=== PATIENT | female | born 1985 | race American Indian/Alaskan Native ===

== ENCOUNTER 2022-05-17 02:30 | Emergency (ER) | payer SELFPAY ==
[2022-05-17] MEDS ORDERED: SODIUM CHLORIDE 0.9% 1000 ML 1,000 ML IV ONE (02:46)
[2022-05-17 03:34] LABS: Basophils # (Auto) 0.1 K/mm3 (0.0-0.1); Eosinophils # (Auto) 0.3 K/mm3 (0.0-0.4); Hematocrit 34.3 % (30.3-42.9); Hemoglobin 11.6 gm/dl (10.1-14.3); Lymphocytes # (Auto) 2.8 K/mm3 (1.2-5.4); Lymphocytes % (Auto) 37.3 % (13.4-35.0); Mean Corpuscular HGB Conc 34 % (30-34); Mean Corpuscular Volume 91 fl (79-97); Monocytes # (Auto) 0.6 K/mm3 (0.0-0.8); Monocytes % (Auto) 8.2 % (0.0-7.3); Platelet Count 329 K/mm3 (140-440); Red Blood Count 3.78 M/mm3 (3.65-5.03); Red Cell Distribution Width 13.8 % (13.2-15.2)
[2022-05-17] MEDS ORDERED: ONDANSETRON 4 MG/2 ML INJ IV ONE (04:23)
--- NOTE | 2022-05-17 04:25 | Emergency Department Report ---
ED General Adult HPI - General Chief complaint: Alcohol Stated complaint: LIGHT HEADEDNESS Time Seen by Provider: 05/17/22 02:46 Source: patient, EMS Mode of arrival: Stretcher Limitations: No Limitations - History of Present Illness Initial comments: Patient is a 36-year-old female presenting to ED with complaint of lightheadedness and nausea beginning earlier yesterday evening. States she did drink alcohol however does not think this is the cause of her symptoms. She denies chest pain or palpitations. - Related Data Allergies Allergy/AdvReac Type Severity Reaction Status Date / Time No Known Allergies Allergy Unverified 05/17/22 02:38 ED Review of Systems ROS: Stated complaint: LIGHT HEADEDNESS Other details as noted in HPI Comment: All other systems reviewed and negative Constitutional: denies: chills, fever Respiratory: denies: cough, shortness of breath, wheezing Cardiovascular: denies: chest pain, palpitations Gastrointestinal: nausea. denies: abdominal pain, diarrhea Musculoskeletal: denies: back pain, joint swelling, arthralgia Skin: denies: rash, lesions Neurological: denies: headache, weakness, paresthesias Psychiatric: denies: anxiety, depression ED Physical Exam - General Limitations: No Limitations General appearance: alert, in no apparent distress, appears intoxicated (Mildly intoxicated), obese - Head Head exam: Present: atraumatic, normocephalic - Respiratory Respiratory exam: Present: normal lung sounds bilaterally. Absent: respiratory distress - Cardiovascular Cardiovascular Exam: Present: regular rate, normal rhythm, normal heart sounds - GI/Abdominal GI/Abdominal exam: Present: soft. Absent: distended, tenderness - Rectal Rectal exam: Present: deferred - Neurological Exam Neurological exam: Present: alert, oriented X3 - Psychiatric Psychiatric exam: Present: normal affect, normal mood - Skin Skin exam: Present: warm, dry, intact, normal color ED Course Vital Signs 05/17/22 05/17/22 05/17/22 02:37 02:49 03:00 Temperature 98.2 F Pulse Rate 100 H 95 H 95 H Respiratory 16 19 15 Rate Blood Pressure 100/62 Blood Pressure 128/91 [Right] O2 Sat by Pulse 97 96 100 Oximetry 05/17/22 05/17/22 05/17/22 03:16 03:30 03:45 Temperature Pulse Rate 103 H 95 H 95 H Respiratory 21 23 21 Rate Blood Pressure 100/62 100/62 113/89 Blood Pressure [Right] O2 Sat by Pulse 98 98 Oximetry 05/17/22 05/17/22 05/17/22 04:00 04:16 04:30 Temperature Pulse Rate 96 H 92 H 89 Respiratory 14 13 23 Rate Blood Pressure 113/89 113/89 113/89 Blood Pressure [Right] O2 Sat by Pulse 97 100 97 Oximetry ED Medical Decision Making - Lab Data Result diagrams: 05/17/22 02:58 05/17/22 02:58 - Medical Decision Making Labs grossly unremarkable except for serum alcohol of 0.18. Patient exhibiting signs of mild intoxication. She was given IV fluids and Zofran. Will discharge once clinically sober. Signed out to Dr. Sullivan for reassessment. Critical care attestation.: If time is entered above; I have spent that time in minutes in the direct care of this critically ill patient, excluding procedure time. ED Disposition Clinical Impression: Alcohol intoxication, Lightheadedness Disposition: 01 HOME / SELF CARE / HOMELESS Is pt being admited?: No Condition: Stable
[2022-05-17 04:42] LABS: Alanine Aminotransferase 59 units/L (7-56); Albumin 4.4 g/dL (3.9-5); Blood Urea Nitrogen 8 mg/dL (7-17); Calcium 9.3 mg/dL (8.4-10.2); Hemolysis Index 17
[2022-05-17 04:47] LABS: BUN/Creatinine Ratio 16
[2022-05-17 06:11] VITALS: BP 109/76
== END 2022-05-17 17:00 | disposition home or self-care (01) ==
LOC: ED 02:30
DX: F10.129 Alcohol abuse with intoxication, unspecified (principal); R42 Dizziness and giddiness; Y90.9 Presence of alcohol in blood, level not specified
CPT/HCPCS: 36415; 80053; 85025; 96361; 96374; 99284; J2405; 80320; G0480

== ENCOUNTER 2022-05-18 01:16 | Emergency (ER) | payer SELFPAY ==
[2022-05-18] MEDS ORDERED: SODIUM CHLORIDE 0.9% 1000 ML 1,000 ML IV ONE (01:23)
[2022-05-18] MEDS ORDERED: NALOXONE 0.4 MG/1 ML INJ IV ONE (01:23)
[2022-05-18 01:45] LABS: Basophils # (Auto) 0.1 K/mm3 (0.0-0.1); Basophils % (Auto) 1.2 % (0.0-1.8); Eosinophils # (Auto) 0.3 K/mm3 (0.0-0.4); Eosinophils % (Auto) 4.6 % (0.0-4.3); Hematocrit 36.5 % (30.3-42.9); Hemoglobin 12.5 gm/dl (10.1-14.3); Lymphocytes # (Auto) 3.7 K/mm3 (1.2-5.4); Lymphocytes % (Auto) 48.5 % (13.4-35.0); Mean Corpuscular HGB Conc 34 % (30-34); Mean Corpuscular Volume 91 fl (79-97); Monocytes # (Auto) 0.5 K/mm3 (0.0-0.8); Monocytes % (Auto) 6.2 % (0.0-7.3); Platelet Count 357 K/mm3 (140-440); Red Blood Count 4.03 M/mm3 (3.65-5.03); Red Cell Distribution Width 14.1 % (13.2-15.2)
[2022-05-18 01:56] LABS: INR 0.91 (0.87-1.13)
[2022-05-18 02:03] LABS: Alanine Aminotransferase 60 units/L (7-56); Albumin 4.4 g/dL (3.9-5); Blood Urea Nitrogen 7 mg/dL (7-17); Calcium 9.2 mg/dL (8.4-10.2); Hemolysis Index 6
[2022-05-18] MEDS ORDERED: diphenhydrAMINE 50 MG/ML VIAL ONE (02:21)
[2022-05-18] MEDS ORDERED: HALOPERIDOL LACTATE 5 MG/1 ML INJ ONE (02:21)
[2022-05-18 02:23] LABS: BUN/Creatinine Ratio 14
--- NOTE | 2022-05-18 02:37 | XRay Report ---
CHEST 1 VIEW 05/18/2022 2:11 AM INDICATION / CLINICAL INFORMATION: Altered Mental Status. COMPARISON: None available. FINDINGS: SUPPORT DEVICES: None. HEART / MEDIASTINUM: No significant abnormality. LUNGS / PLEURA: No significant pulmonary or pleural abnormality. No pneumothorax. ADDITIONAL FINDINGS: No significant additional findings. IMPRESSION: 1. No acute findings. Signer Name: Nithin Guzman MD Signed: 05/18/2022 2:32 AM Workstation Name: [id number]
--- NOTE | 2022-05-18 02:59 | Emergency Department Report ---
ED General Adult HPI - General Chief complaint: Overdose Stated complaint: FENTANYL CONSUMPTION PUI?: No Time Seen by Provider: 05/18/22 01:23 Source: patient, EMS Mode of arrival: Ambulatory Limitations: No Limitations - History of Present Illness Initial comments: pt was brought in by EMS for fentanyl accidental ingestion, she stated that she was trying to get cocoaine but took fentanyl by mistake, no SI or suicidal attempt , she reported that she has PTSD and she has thoughts of harming other people with plan but nothing she wants to elaborate on -: unknown Severity scale (0 -10): 0 - Related Data Allergies Allergy/AdvReac Type Severity Reaction Status Date / Time No Known Allergies Allergy Verified 05/18/22 02:30 ED Review of Systems ROS: Stated complaint: FENTANYL CONSUMPTION Other details as noted in HPI Constitutional: denies: chills, fever Eyes: denies: eye pain, eye discharge, vision change ENT: denies: ear pain, throat pain Respiratory: denies: cough, shortness of breath, wheezing Cardiovascular: denies: chest pain, palpitations Endocrine: no symptoms reported Gastrointestinal: denies: abdominal pain, nausea, diarrhea Genitourinary: denies: urgency, dysuria, discharge Musculoskeletal: denies: back pain, joint swelling, arthralgia Skin: denies: rash, lesions Neurological: denies: headache, weakness, paresthesias Psychiatric: denies: anxiety, depression Hematological/Lymphatic: denies: easy bleeding, easy bruising ED Past Medical Hx - Past Medical History Previous Medical History?: No Hx Hypertension: No - Social History Smoking Status: Unknown if ever smoked ED Physical Exam - General Limitations: No Limitations General appearance: alert, anxious - Head Head exam: Present: atraumatic, normocephalic - Eye Eye exam: Present: normal appearance - ENT ENT exam: Present: mucous membranes moist - Neck Neck exam: Present: normal inspection - Respiratory Respiratory exam: Present: normal lung sounds bilaterally. Absent: respiratory distress - Cardiovascular Cardiovascular Exam: Present: regular rate, normal rhythm. Absent: systolic murmur, diastolic murmur, rubs, gallop - GI/Abdominal GI/Abdominal exam: Present: soft, normal bowel sounds - Extremities Exam Extremities exam: Present: normal inspection - Back Exam Back exam: Present: normal inspection - Neurological Exam Neurological exam: Present: alert, oriented X3 - Psychiatric Psychiatric exam: Present: agitated, anxious, homicidal ideation - Skin Skin exam: Present: warm, dry, intact, normal color. Absent: rash ED Course Vital Signs 05/18/22 05/18/22 05/18/22 01:19 02:49 02:51 Temperature 98.2 F Pulse Rate 102 H Respiratory 16 18 Rate Blood Pressure 122/88 125/91 [Right] O2 Sat by Pulse 99 98 98 Oximetry ED Medical Decision Making - Lab Data Result diagrams: 05/18/22 01:30 05/18/22 01:30 Critical care attestation.: If time is entered above; I have spent that time in minutes in the direct care of this critically ill patient, excluding procedure time. ED Disposition Clinical Impression: Alcohol intoxication, Homicidal ideation Disposition: 30 STILL A PATIENT Is pt being admited?: No Does the pt Need Aspirin: No Condition: Stable Referrals: PRIMARY CARE, [Primary Care Provider] - 3-5 Days
--- NOTE | 2022-05-18 09:18 | Consultation ---
History of Present Illness - Reason for Consult Consult date: 05/18/22 Reason for consult: fentanyl use - History of Present Psychiatric Illness The patient was seen today. She was brought to the ER for accidental fentanyl ingestion. During my evaluation the patient is irritable. She is reluctant to cooperate. She says she feels dizzy. The patient states she wants treatment for cocaine and alcohol. She says she was in a treatment center in [place] but moved here about a month ago. She says it was a sobriety program. She says she wants to get back to [place]. I ask the patient what brought her here to [place], she becomes irritable and says "I don't know." The patient denies any psych history. She denies any SI/HI or hallucinations of any kind. She denies any psych history or being on any meds. PAST PSYCHIATRIC HISTORY: Diagnoses: Denies Suicide attempts or Self-harm behavior: Denies Prior psychiatric hospitalizations: Denies Substance Abuse history: cocaine and alcohol Previous psychiatric medications tried: denies Outpatient treatment: Denies PAST MEDICAL HISTORY: None reported Family Psychiatric History: None reported or documented SOCIAL HISTORY Marital Status: Single Living Arrangements: Alone Employment Status: Unemployed Access to guns/weapons: Denies Education: History of Abuse:Denies Legal History: Denies REVIEW OF SYSTEMS Constitutional: Negative for weight loss ENT: Negative for stridor Respiratory: Negative for cough or hemoptysis All other systems reviewed and are negative MENTAL STATUS EXAMINATION General Appearance and Behavior: Age appropriate, good hygiene, wearing appropriate clothes, irritable, cooperative Cooperation: Cooperative Psychomotor Behavior: Psychomotor normal Mood: okay Affect and affective range: congruent with stated mood Thought Process: goal directed Thought Content: None Speech: Normal tone and pace Suicidal Ideation: Denies Homicidal Ideation: Denies Hallucinations: Denies Delusions: None elicited Impulse Control: Limited Insight and Judgment: limited insight and poor judgment Memory: Limited Attention: attentive Orientation: a/o Assessment (1) Cocaine Use Disorder with Substance Induced Mood (2) Alcohol Dependence Treatment Plan d/c 1013 No scripts given at this time Medical: per primary Sitter: defer to primary Disposition: Do not recommend acute psychiatric inpatient treatment. The patient understands that if SI/HI or any fear of endangerment arise she is to seek immediate assistance. The patient is to abstain from all illicit drug use The digital sales assistant is to give the patient all necessary outpatient resources, including drug rehab and intermediate assistance The digital sales assistant to further discuss safety plan. Will sign off. Thanks Case staffed with Dr. Tidwell Medications and Allergies Allergies Allergy/AdvReac Type Severity Reaction Status Date / Time No Known Allergies Allergy Verified 05/18/22 02:30 Mental Status Exam - Vital signs Last Vital Signs Temp 98.2 F 05/18/22 01:19 Pulse 102 H 05/18/22 01:19 Resp 18 05/18/22 02:51 BP 125/91 05/18/22 02:51 Pulse Ox 98 05/18/22 08:42 Results Result Diagrams: 05/18/22 01:30 05/18/22 01:30 Abnormal lab results 05/18/22 05/18/22 05/18/22 Range/Units 01:30 01:30 01:30 Lymph % (Auto) 48.5 H (13.4-35.0) % Eos % (Auto) 4.6 H (0.0-4.3) % Seg Neutrophils % 39.5 L (40.0-70.0) % Potassium 3.3 L (3.6-5.0) mmol/L Creatinine 0.5 L (0.6-1.2) mg/dL Glucose 110 H (65-100) mg/dL AST 48 H (5-40) units/L ALT 60 H (7-56) units/L Total Creatine Kinase 189 H (30-135) units/L Salicylates < 0.3 L (2.8-20.0) mg/dL Acetaminophen (10.0-30.0) ug/mL Plasma/Serum Alcohol (0-0.07) % 05/18/22 05/18/22 Range/Units 01:30 01:30 Lymph % (Auto) (13.4-35.0) % Eos % (Auto) (0.0-4.3) % Seg Neutrophils % (40.0-70.0) % Potassium (3.6-5.0) mmol/L Creatinine (0.6-1.2) mg/dL Glucose (65-100) mg/dL AST (5-40) units/L ALT (7-56) units/L Total Creatine Kinase (30-135) units/L Salicylates (2.8-20.0) mg/dL Acetaminophen 5.0 L (10.0-30.0) ug/mL Plasma/Serum Alcohol 0.27 H (0-0.07) % All other labs normal.
[2022-05-18 11:55] VITALS: BP 118/74
== END 2022-05-18 12:00 | disposition home or self-care (01) ==
LOC: ED 01:16
DX: F10.129 Alcohol abuse with intoxication, unspecified (principal); Z20.822 Contact with and (suspected) exposure to COVID-19; R45.850 Homicidal ideations; R79.1 Abnormal coagulation profile; Z79.899 Other long term (current) drug therapy; Y90.9 Presence of alcohol in blood, level not specified
CPT/HCPCS: 36415; 71045; 80053; 82550; 84484; 84703; 85025; 85610; 99284; J1200; J1630; U0003; 80320; G0480

== ENCOUNTER 2022-05-18 20:53 | Emergency (ER) | payer SELFPAY ==
[2022-05-18 22:17] LABS: Basophils # (Auto) 0.2 K/mm3 (0.0-0.1); Eosinophils # (Auto) 0.4 K/mm3 (0.0-0.4); Eosinophils % (Auto) 5.5 % (0.0-4.3); Hematocrit 36.5 % (30.3-42.9); Hemoglobin 11.8 gm/dl (10.1-14.3); Lymphocytes # (Auto) 3.7 K/mm3 (1.2-5.4); Lymphocytes % (Auto) 47.9 % (13.4-35.0); Mean Corpuscular HGB Conc 32 % (30-34); Mean Corpuscular Volume 93 fl (79-97); Monocytes # (Auto) 0.6 K/mm3 (0.0-0.8); Platelet Count 316 K/mm3 (140-440); Red Blood Count 3.92 M/mm3 (3.65-5.03); Red Cell Distribution Width 14.5 % (13.2-15.2)
--- NOTE | 2022-05-18 22:34 | Emergency Department Report ---
ED Psych HPI - General Chief Complaint: Psych Stated Complaint: MENTAL HEALTH Time Seen by Provider: 05/18/22 21:43 Source: EMS, old records reviewed Mode of arrival: Ambulatory Limitations: No Limitations - History of Present Illness Initial Comments: 36-year-old female the past medical history of PTSD, bipolar disorder, polysubstance abuse presents to the hospital complaining of wanting help to detox off of multiple substances, psychosis, and suicidal ideation. Patient states she lives in [place]. Approximately 1 month and a half ago she was discharged from [facility] in [facility] and provided a bus pass to come to [place] for admission to the [facility]. Patient states she was there for approximately 1 month but left the facility 4 days ago. Since she has been abusing multiple substances including alcohol, heroin, and crack since leaving the facility. They will not take her back without $500 payment. Patient has been to the ED yesterday for a medical complaint and earlier this morning with request for detox after accidental fentanyl overdose requiring Narcan. This morning patient was seen by mental health professional and subsequently discharged at noon. She re-presented to the hospital almost 10 hours later after being picked up from with complaints of suicidal ideation for 2 days. Patient states she had a piece of glass and thought about cutting her wrist. She has history of attempting to cut her wrist in the past. She complains of hearing voices which repeat the word kill. She denies of any acute physical complaints - Related Data Allergies Allergy/AdvReac Type Severity Reaction Status Date / Time diphenhydramine Allergy Itching Verified 05/18/22 21:18 [From Bruno] ED Review of Systems ROS: Stated complaint: MENTAL HEALTH Other details as noted in HPI Comment: All other systems reviewed and negative ED Past Medical Hx - Past Medical History Previous Medical History?: Yes Hx Hypertension: No Hx Psychiatric Treatment: Yes (bipolar, anxiety, PTSD,) Hx Asthma: Yes - Surgical History Past Surgical History?: No - Social History Smoking Status: Never Smoker Substance Use Type: None ED Physical Exam - General Limitations: No Limitations - Other Other exam information: General: No acute distress Head: Atraumatic Eyes: normal appearance ENT: Moist mucous membranes Neck: Normal appearance, no midline tenderness Chest: Clear to auscultation bilaterally CV: Regular rate and rhythm Abdomen: Soft, normal bowel sounds, nontender, nondistended, no rebound or guarding Back: Normal inspection Extremity: Normal inspection, full range of motion Neuro: Alert O x 3, no facial asymmetry, speech clear, no gross motor sensory deficit Psych: Appropriate behavior Skin: No rash ED Course Vital Signs 05/18/22 05/18/22 05/19/22 21:15 21:49 08:41 Temperature 98.8 F 98.6 F Pulse Rate 80 83 Respiratory 18 18 Rate Blood Pressure 110/70 Blood Pressure 106/66 [Left] O2 Sat by Pulse 99 97 99 Oximetry 05/19/22 05/19/22 08:42 21:29 Temperature 99.1 F Pulse Rate 80 Respiratory 16 Rate Blood Pressure Blood Pressure 128/94 [Left] O2 Sat by Pulse 99 100 Oximetry - Reevaluation(s) Reevaluation #1: 05/18/22 22:30 Patient initially asking for medications to help her anxiety. She was requesting a shot similar to the shot she received during her recent visit. I informed her I want to wait for her labs come back first. She then began shaking her leg and banging the back of her head intermittently against the wall. Patient has polysubstance abuse and might be experiencing some withdrawal symptoms for one of her substances. At this time she does not have any vital sign abnormality. She did provide a urine sample during this visit ED Medical Decision Making - Lab Data Result diagrams: 05/18/22 21:55 05/18/22 21:55 - Medical Decision Making 36 yo with SI and polysubstance abuse. 1013 signed. Patient having frequent visits to the ER with recent substance abuse treatment. Patient medically cleared pending urine collection and awaiting mental health evaluation for possible placement. [facility] protocol ordered for monitoring for alcohol wi thdrawal. Critical Care Time: No Critical care attestation.: If time is entered above; I have spent that time in minutes in the direct care of this critically ill patient, excluding procedure time. ED Disposition Clinical Impression: Alcohol intoxication, Polysubstance abuse, Suicidal ideation, PTSD (post- traumatic stress disorder), Bipolar disorder Disposition: PSYCHIATRIC HOSPITAL Is pt being admited?: No Condition: Stable Additional Instructions: Professional and Agency Contacts To help [facility] (23/04) [place] Crisis Line: Suicide Prevention Line: Crisis Text Line: Text START to 125581 Emergency: 911 Outpatient COMMUNITY Behavioral Health Resources: MANUELA: [facility] [address] [place], [place] [address] PERU: [facility] [address] [place] [address] Sunday thru Sunday - 8am - 5pm Call to schedule an assessment for mental health and substance abuse programs MARTINEZ: [facility] Address: [address] [place] [address] Sunday thru Sunday- 7am-2pm [facility] Address: [address] [place] [address] Sunday thru Sunday: 8:30AM-5PM In case of an emergency, please contact the following numbers: [place] Crisis and Access Line: Number: Crisis Text Line: (Text START) Number: 734895 Suicide Prevention Line: Number: Emergency Number: 911 SUBSTANCE ABUSE PROGRAMS: [facility]: Location: [place], [place] [facility] Address: [address] [place] [address] [facility] Recovery: Address: [address] [place] [id number] [facility]: Address: [address] [place] [address] [facility] Community: Address: [address] [place] [address]
[2022-05-18 23:31] LABS: Blood Urea Nitrogen 8 mg/dL (7-17); Calcium 9.2 mg/dL (8.4-10.2); Hemolysis Index 0
[2022-05-18] MEDS ORDERED: LORazepam 2 MG TAB PO PRN ×2 (23:41)
[2022-05-18 23:45] LABS: BUN/Creatinine Ratio 11
[2022-05-18 23:55] LABS: Amphetamine Screen,Urine Negative; Benzodiazepines Screen,Urine Negative; Cannabinoid Screen,Urine Negative; Methadone Screen,Urine Negative; Opiate Screen,Urine Negative
[2022-05-19 00:17] LABS: Cocaine Screen,Urine Positive
[2022-05-19 00:20] LABS: Mucus,Urine 1+ /HPF
[2022-05-19 00:22] LABS: WBC,Urine > 182.0 /HPF (0.0-6.0)
[2022-05-19 00:23] LABS: Color,Urine Yellow (Yellow)
--- NOTE | 2022-05-19 13:32 | Consultation ---
History of Present Illness - Reason for Consult Consult date: 05/19/22 Reason for consult: suicidal ideation - History of Present Psychiatric Illness Per note: 36-year-old female the past medical history of PTSD, bipolar disorder, polysubstance abuse presents to the hospital complaining of wanting help to detox off of multiple substances, psychosis, and suicidal ideation. Patient states she lives in [place]. Approximately 1 month and a half ago she was discharged from [facility] in [facility] and provided a bus pass to come to [place] for admission to the [facility]. Patient states she was there for approximately 1 month but left the facility 4 days ago. Since she has been abusing multiple substances including alcohol, heroin, and crack since leaving the facility. They will not take her back without $500 payment. Patient has been to the ED yesterday for a medical complaint and earlier this morning with request for detox after accidental fentanyl overdose requiring Narcan. This morning patient was seen by mental health professional and subsequently discharged at noon. She re-presented to the hospital almost 10 hours later after being picked up from with complaints of suicidal ideation for 2 days. Patient states she had a piece of glass and thought about cutting her wrist. She has history of attempting to cut her wrist in the past. She complains of hearing voices which repeat the word kill. She denies of any acute physical complaints. The patient was seen today. She reports ongoing depression and suicidal ideation x 2 days. She reports that she was recently admitted at [facility] but she states that she walked out because she was unable to see her children. She endorses suicidal ideation with a plan " cut myself or walk into the middle of the street;"she has a history of suicidal attempt via cutting her wrist. She reports being noncompliant with psychotropic medication. She denies hallucinations. PAST PSYCHIATRIC HISTORY: Diagnoses: Depression, PTSD, Polysubstance abuse Suicide attempts or Self-harm behavior: Yes Prior psychiatric hospitalizations: yes Substance Abuse history: alcohol, cocaine, and methamphetamines Previous psychiatric medications tried: Zoloft, Vistaril and Risperidone Outpatient treatment: Denies PAST MEDICAL HISTORY: None reported Family Psychiatric History: None reported or documented SOCIAL HISTORY Marital Status:Single Living Arrangements: Homeless Employment Status: Unemployed Access to guns/weapons: Denies Education: some college History of Abuse:Denies Legal History: Denies REVIEW OF SYSTEMS Constitutional: Negative for weight loss ENT: Negative for stridor Respiratory: Negative for cough or hemoptysis All other systems reviewed and are negative MENTAL STATUS EXAMINATION General Appearance and Behavior: Age appropriate, good hygiene, wearing appropriate clothes. calm, cooperative Cooperation: Cooperative Psychomotor Behavior: Psychomotor normal Mood: depressed Affect and affective range: congruent with stated mood Thought Process: goal directed Thought Content: Suicidal Speech: Normal tone and pace Suicidal Ideation: Yes Homicidal Ideation: Denies Hallucinations: Denies Delusions: none elicited Impulse Control: normal Insight and Judgment: limited insight and judgment Memory: Limited Attention: attentive Orientation: a/o Assessment (1) Bipolar Treatment Plan Continue home medication Seroquel 25mg po BID and 50mg po QHS Zoloft 25mg po daily Medical: per primary Sitter: defer to primary Disposition: Recommend acute psychiatric inpatient treatment. Will follow. Thanks Case staffed with Dr. Tidwell Medications and Allergies Medications and Allergies Allergies Allergy/AdvReac Type Severity Reaction Status Date / Time diphenhydramine Allergy Itching Verified 05/18/22 21:18 [From Benadryl] Active Meds: Active Medications Lorazepam (Lorazepam 2 Mg Tab) 2 mg PO Q1HR PRN PRN Reason: CIWA-Ar 8-15 Lorazepam (Lorazepam 2 Mg Tab) 4 mg PO Q1HR PRN PRN Reason: CIWA-Ar 16-25 Mental Status Exam - Vital signs Last Vital Signs Temp 98.6 F 05/19/22 08:41 Pulse 83 05/19/22 08:41 Resp 18 05/19/22 08:41 BP 106/66 05/19/22 08:41 Pulse Ox 99 05/19/22 08:42 Results Result Diagrams: 05/18/22 21:55 05/18/22 21:55 Abnormal lab results 05/18/22 05/18/22 05/18/22 Range/Units 21:55 21:55 21:55 Lymph % (Auto) 47.9 H (13.4-35.0) % [place] % (Auto) 8.0 H (0.0-7.3) % Eos % (Auto) 5.5 H (0.0-4.3) % Baso % (Auto) 2.0 H (0.0-1.8) % Baso # (Auto) 0.2 H (0.0-0.1) K/mm3 Seg Neutrophils % 36.6 L (40.0-70.0) % Potassium 3.4 L (3.6-5.0) mmol/L Urine WBC (Auto) (0.0-6.0) /HPF U Epithel Cells (Auto) (0-13.0) /HPF Salicylates < 0.3 L (2.8-20.0) mg/dL Acetaminophen (10.0-30.0) ug/mL Plasma/Serum Alcohol (0-0.07) % 05/18/22 05/18/22 05/18/22 Range/Units 21:55 21:55 22:59 Lymph % (Auto) (13.4-35.0) % [place] % (Auto) (0.0-7.3) % Eos % (Auto) (0.0-4.3) % Baso % (Auto) (0.0-1.8) % Baso # (Auto) (0.0-0.1) K/mm3 Seg Neutrophils % (40.0-70.0) % Potassium (3.6-5.0) mmol/L Urine WBC (Auto) > 182.0 H (0.0-6.0) /HPF U Epithel Cells (Auto) 18.0 H (0-13.0) /HPF Salicylates (2.8-20.0) mg/dL Acetaminophen 5.0 L (10.0-30.0) ug/mL Plasma/Serum Alcohol 0.17 H (0-0.07) % All other labs normal.
[2022-05-19] MEDS ORDERED: SERTRALINE 25 MG TAB PO SCH (14:00)
[2022-05-19] MEDS: QUEtiapine 25 MG TAB PO SCH ×2 (14:07→22:29)
[2022-05-19] MEDS ORDERED: ACETAMINOPHEN 500 MG TAB PO ONE ×2 (14:22→16:21)
--- NOTE | 2022-05-19 15:16 | Event Note ---
Date: 05/19/22 36 yo F currently 1013 waiting acceptance to [facility] psychiatry facility. Pt did not have any event today other than requesting for some pain medication for his lower back pain. She reports that this is chronic with her. Pt given ordered for Tylenol 1g PO x 1. No other reported event today. 15:50 PM-- Pt now been accepted to be transferred to [facility] psych facility for impatient.
[2022-05-19 21:31] VITALS: BP 128/94
[2022-05-19] MEDS ORDERED: QUEtiapine 25 MG TAB PO SCH (22:00)
== END 2022-05-20 02:17 ==
LOC: ED 20:53
DX: F10.129 Alcohol abuse with intoxication, unspecified (principal); F19.10 Other psychoactive substance abuse, uncomplicated; R45.851 Suicidal ideations; F31.9 Bipolar disorder, unspecified; Z88.8 Allergy status to other drugs, medicaments and biological substances
CPT/HCPCS: 36415; 80048; 80307; 80320; 81001; 84703; 85025; 99285; G0480